=== PATIENT | female | born 1965 | race Caucasian/White ===

== ENCOUNTER 2018-07-22 15:21 | Outpatient (CLI) | payer OTHER | END 2018-07-22 18:28 | disposition home or self-care (01) | LOC: SMA 15:21 | PROVIDERS: ATTEND Internal Medicine | DX: Z12.31 Encounter for screening mammogram for malignant neoplasm of breast (principal) | CPT/HCPCS: 77067 ==

== ENCOUNTER 2019-07-23 15:02 | Outpatient (CLI) | payer OTHER | END 2019-07-23 18:21 | disposition home or self-care (01) | LOC: SMA 15:02 | PROVIDERS: ATTEND Internal Medicine | DX: Z12.31 Encounter for screening mammogram for malignant neoplasm of breast (principal) | CPT/HCPCS: 77067 ==

== ENCOUNTER 2021-04-19 13:15 | Outpatient (CLI) | payer OTHER | END 2021-04-19 19:15 | disposition home or self-care (01) | LOC: SMA 13:15 | PROVIDERS: ATTEND Internal Medicine | DX: R92.2 Inconclusive mammogram (principal); N64.89 Other specified disorders of breast; N63.10 Unspecified lump in the right breast, unspecified quadrant; N64.4 Mastodynia | CPT/HCPCS: 76641; 77066 ==